=== PATIENT | male | born 1935 | race Caucasian/White ===

== ENCOUNTER 2016-08-30 10:03 | Day surgery (SDC) | payer OTHER, BC ==
[~2016-08-30] VITALS: Ht 182.9 cm; Wt 123.4 kg
[~2016-08-30 10:03] MED LIST: CALCIUM 600 +1 EA12 PO; CRESTOR20 MG PO; DAILY VALUE1 EACH PO; GLUCOPHAGE850 MG PO; GLUCOTROL XL2.5 MG PO; JANUVIA100 MG PO; LO-DOSE ASPIRIN81 M2 PO; REPAGLINIDE0.5 MG PO; VITAMIN D2000 UNIT PO; ZESTRIL20 MG PO
[2016-08-30 10:32] LABS: MCH 27.7 PG (29.0-34.0); MCHC 31.4 G/DL (30.0-36.0); MCV 88.2 FL (86-99); MEAN PLAT.VOLUME 9.3 uM^3 (9.0-12.4); PLATELET COUNT 201 K/uL (156-360); RBC DIS.WIDTH-CV 13.8 % (11.8-14.6); RBC DIS.WIDTH-SD 44.8 % (39-53); RED BLOOD COUNT 5.67 M/uL (4.00-5.50); WHITE BLOOD COUNT 9.8 K/uL (4.1-10.2)
[2016-08-30 10:53] VITALS: BP 129/83
[2016-08-30 11:14] LABS: ANION GAP 9 MEQ/L (2-14); CHLORIDE 101 MEQ/L (99-109); POTASSIUM 4.6 MEQ/L (3.7-5.4); SAMPLE HEMOLYSIS CHECK 0; SAMPLE ICTERIC CHECK 0; SAMPLE LIPEMIA CHECK 0; SODIUM 143 MEQ/L (136-147)
[2016-08-30 11:19] LABS: GFR ESTIMATE (CALCULATED) 48 mL/min/; GLUCOSE 114 mg/dL (70-99); UREA NITROGEN (BUN) 23 mg/dL (9-23)
[2016-08-30 14:28] LABS: POINT-OF-CARE METER ID UU13113675
[2016-08-30 16:29] VITALS: BP 142/77
[2016-08-30 17:33] VITALS: BP 157/72
[2016-08-30 18:30] VITALS: BP 136/75
== END 2016-08-30 18:56 | disposition home or self-care (01) ==
LOC: SDC 10:03
PROVIDERS: Otolaryngology
DX: C09.8 Malignant neoplasm of overlapping sites of tonsil (principal); Z87.891 Personal history of nicotine dependence; J37.0 Chronic laryngitis; R13.10 Dysphagia, unspecified; I10 Essential (primary) hypertension; E11.9 Type 2 diabetes mellitus without complications; E66.9 Obesity, unspecified; Z68.36 Body mass index [BMI] 36.0-36.9, adult; Z79.84 Long term (current) use of oral hypoglycemic drugs; Z79.82 Long term (current) use of aspirin
CPT/HCPCS: 80048; 82948; 85027; 88305; 88341 TC; 88342 TC; 93005; J0171; J0561; J0690; J1170; J3010; J7050; S0020

== ENCOUNTER 2016-10-12 10:34 | Day surgery (SDC) | payer OTHER, BC ==
[~2016-10-12] VITALS: Ht 170.2 cm; Wt 121.1 kg
[2016-10-12 11:29] VITALS: BP 136/73
[2016-10-12 12:00] LABS: POINT-OF-CARE METER ID UU13113694
[2016-10-12] MEDS ORDERED: NORCO 5/3251 TABLET PO (15:38)
[2016-10-12 15:44] LABS: POINT-OF-CARE METER ID UU13113675
[2016-10-12 16:13] VITALS: BP 128/68
[2016-10-12 17:30] VITALS: BP 118/62
== END 2016-10-12 17:50 | disposition home or self-care (01) ==
LOC: SDC 10:34
PROVIDERS: Surgery
DX: C09.9 Malignant neoplasm of tonsil, unspecified (principal); Z87.891 Personal history of nicotine dependence; K42.9 Umbilical hernia without obstruction or gangrene; E78.5 Hyperlipidemia, unspecified; I10 Essential (primary) hypertension; Z79.82 Long term (current) use of aspirin; Z79.84 Long term (current) use of oral hypoglycemic drugs; Z82.49 Family history of ischemic heart disease and other diseases of the circulatory system; Z82.5 Family history of asthma and other chronic lower respiratory diseases; Z80.6 Family history of leukemia
CPT/HCPCS: 71010; 82948; C1751; J3010

== ENCOUNTER 2016-11-26 11:35 | Inpatient (IN) | payer OTHER, BC ==
[~2016-11-26] VITALS: Ht 180.3 cm; Wt 119.0 kg
[~2016-11-26 11:35] MED LIST changes: +NORCO 5/3251 TABLET PO
[2016-11-26] MEDS ORDERED: GLIPIZIDE5 MG PO (12:08)
[2016-11-26] MEDS ORDERED: ONDANSETRON HCL4 MG PO (12:09)
[2016-11-26] MEDS ORDERED: DURAGESIC50 MCG TD (12:09)
[2016-11-26] MEDS ORDERED: GLUCOPHAGE500 MG PO (12:10)
[2016-11-26 12:48] LABS: ADD MIUA? YES; BILIRUBIN NEGATIVE; BLOOD NEGATIVE; COLOR YELLOW ((YELLOW)); GLUCOSE (STRIP) >=500; KETONES NEGATIVE; LEUKOCYTES NEGATIVE; NITRITE NEGATIVE; PROTEIN (STRIP) 30; SPECIFIC GRAVITY 1.013 (1.000-1.030); UROBILINOGEN 0.2 MG/DL (0.2-1.0)
[2016-11-26 12:50] LABS: BACTERIA RARE /HPF; EPITHELIAL CELLS RARE /HPF; MUCUS TRACE /LPF; RED BLOOD CELLS 0-5 /HPF (0-5); UCUL ADDED? NO; WHITE BLOOD CELLS 0-5 /HPF (0-5)
[2016-11-26 13:24] LABS: EOSINOPHIL (%) 0.4 % (0-5); HEMATOCRIT 35.9 % (38.0-50.0); IMMATURE GRANULOCYTE (%) 0.2 % (0.0-0.7); INSTRUMENT ABS NEUTROPHIL CT 3.6 K/uL; LYMPHOCYTE COUNT 0.3 K/uL (1.0-2.8); MCH 28.4 PG (29.0-34.0); MCV 88.6 FL (86-99); MEAN PLAT.VOLUME 8.4 uM^3 (9.0-12.4); MONOCYTE (%) 17.4 % (3-12); MONOCYTE COUNT 0.8 K/uL (0-0.8); NEUTROPHIL (%) 75.4 % (45-76); NEUTROPHIL COUNT 3.6 K/uL (1.8-6.4); PLATELET COUNT 155 K/uL (156-360); RBC DIS.WIDTH-CV 16.4 % (11.8-14.6); RBC DIS.WIDTH-SD 46.2 % (39-53); RED BLOOD COUNT 4.05 M/uL (4.00-5.50); WHITE BLOOD COUNT 4.8 K/uL (4.1-10.2)
[2016-11-26 13:35] LABS: POINT-OF-CARE METER ID UU13113747
[2016-11-26 13:38] LABS: CHLORIDE 93 mEq/L (99-109); POTASSIUM 4.9 mEq/L (3.7-5.4); SODIUM 135 mEq/L (136-147)
[2016-11-26 13:41] LABS: GLUCOSE 193 mg/dL (70-99)
[2016-11-26 13:42] LABS: ANION GAP 12 MEQ/L (2-14); TOTAL BILIRUBIN 0.6 mg/dL (0.0-1.0)
[2016-11-26 13:44] LABS: ALKALINE PHOSPHATASE 76 IU/L (3-129); GFR ESTIMATE (CALCULATED) > 59 mL/min/
[2016-11-26 13:45] LABS: UREA NITROGEN (BUN) 26 mg/dL (9-23)
[2016-11-26 15:32] LABS: TROP-I INTERPRETATION NEGATIVE; TROPONIN-I 0.14 ng/mL (0.0-0.30)
[2016-11-26 17:13] VITALS: BP 130/70
[2016-11-26 18:03] LABS: POINT-OF-CARE METER ID UU13113725
[2016-11-26 19:01] VITALS: BP 113/60
[2016-11-26 21:06] LABS: POINT-OF-CARE METER ID UU13113725
[2016-11-26 21:18] LABS: TROP-I INTERPRETATION NEGATIVE; TROPONIN-I 0.07 ng/mL (0.0-0.30)
[2016-11-26 22:55] VITALS: BP 121/70
[2016-11-26 23:58] LABS: INTER. NORMALIZED RATIO 1.1; PROTHROMBIN TIME 12.6 SEC (10.2-12.9)
[2016-11-27 02:32] VITALS: BP 150/76
[2016-11-27 03:03] LABS: TROP-I INTERPRETATION NEGATIVE; TROPONIN-I 0.03 ng/mL (0.0-0.30)
[2016-11-27 06:28] LABS: HEMATOCRIT 34.2 % (38.0-50.0); MCV 90.5 FL (86-99); MEAN PLAT.VOLUME 8.6 uM^3 (9.0-12.4); PLATELET COUNT 141 K/uL (156-360); RBC DIS.WIDTH-CV 16.6 % (11.8-14.6); RBC DIS.WIDTH-SD 47.7 % (39-53); RED BLOOD COUNT 3.78 M/uL (4.00-5.50); WHITE BLOOD COUNT 3.4 K/uL (4.1-10.2)
[2016-11-27 06:32] LABS: INTER. NORMALIZED RATIO 1.1; PROTHROMBIN TIME 12.6 SEC (10.2-12.9)
[2016-11-27 06:51] LABS: ANION GAP 4 MEQ/L (2-14); CHLORIDE 97 MEQ/L (99-109); GFR ESTIMATE (CALCULATED) > 59 mL/min/; GLUCOSE 140 mg/dL (70-99); POTASSIUM 4.3 MEQ/L (3.7-5.4); SAMPLE HEMOLYSIS CHECK 0; SAMPLE ICTERIC CHECK 0; SAMPLE LIPEMIA CHECK 0; SODIUM 138 MEQ/L (136-147); UREA NITROGEN (BUN) 20 mg/dL (9-23)
[2016-11-27 08:02] VITALS: BP 130/73
[2016-11-27 12:05] VITALS: BP 125/73
[2016-11-27 16:43] VITALS: BP 144/87
[2016-11-27 19:26] VITALS: BP 125/71
[2016-11-27 21:25] LABS: POINT-OF-CARE METER ID UU13113725
[2016-11-27 22:56] VITALS: BP 133/78
[2016-11-28 02:39] VITALS: BP 155/80
[2016-11-28 06:12] LABS: POINT-OF-CARE METER ID UU13113725
[2016-11-28 07:23] LABS: INTER. NORMALIZED RATIO 1.2; PROTHROMBIN TIME 12.9 SEC (10.2-12.9)
[2016-11-28 07:28] VITALS: BP 160/65
[2016-11-28 07:41] LABS: VANCOMYCIN, TROUGH 8.8 MCG/ML (10-20)
[2016-11-28 08:16] LABS: HEMATOCRIT 33.8 % (38.0-50.0); MCH 29.6 PG (29.0-34.0); MCHC 32.5 G/DL (30.0-36.0); MCV 90.9 FL (86-99); PLATELET COUNT 117 K/uL (156-360); RBC DIS.WIDTH-CV 16.8 % (11.8-14.6); RBC DIS.WIDTH-SD 48.7 % (39-53); RED BLOOD COUNT 3.72 M/uL (4.00-5.50); WHITE BLOOD COUNT 3.3 K/uL (4.1-10.2)
[2016-11-28 08:27] LABS: ANION GAP 10 MEQ/L (2-14); CHLORIDE 101 MEQ/L (99-109); GFR ESTIMATE (CALCULATED) > 59 mL/min/; GLUCOSE 130 mg/dL (70-99); SODIUM 140 MEQ/L (136-147); UREA NITROGEN (BUN) 16 mg/dL (9-23)
[2016-11-28 12:07] VITALS: BP 143/78
[2016-11-28] MEDS ORDERED: LOVENOX120 MG/0.8 SC (13:29)
== END 2016-11-28 15:38 | disposition home health service (06) | DRG 176 ==
LOC: EME 11:35 → 5EAST 14:31 → EDOF 14:31 → ENRESERV 14:32 → 5EAST 16:38
PROVIDERS: Emergency Medicine; Internal Medicine
DX: I26.99 Other pulmonary embolism without acute cor pulmonale (principal); I82.432 Acute embolism and thrombosis of left popliteal vein; I82.442 Acute embolism and thrombosis of left tibial vein; I82.492 Acute embolism and thrombosis of other specified deep vein of left lower extremity; C09.9 Malignant neoplasm of tonsil, unspecified; E11.22 Type 2 diabetes mellitus with diabetic chronic kidney disease; I12.9 Hypertensive chronic kidney disease with stage 1 through stage 4 chronic kidney disease, or unspecified chronic kidney disease; N18.9 Chronic kidney disease, unspecified; E78.5 Hyperlipidemia, unspecified; K59.00 Constipation, unspecified; D64.9 Anemia, unspecified; E66.01 Morbid (severe) obesity due to excess calories; Z68.36 Body mass index [BMI] 36.0-36.9, adult; Z87.891 Personal history of nicotine dependence; Z79.82 Long term (current) use of aspirin
CPT/HCPCS: 36415; 71010; 71250; 71275; 77385; 80048; 80048 91; 80053; 80202; 81003; 82948; 83605; 84484; 85025; 85027; 85379; 85610; 87040; 87801; 93005; 93970; 94799; 99202; 99281; 99285; J0696; J1650; J1815; J2405; J2543; J3370; J7030; J7050; S0028

== ENCOUNTER 2017-02-10 10:12 | Day surgery (SDC) | payer OTHER, BC ==
[~2017-02-10 10:12] MED LIST changes: +DURAGESIC50 MCG TD; +GLIPIZIDE5 MG PO; +GLUCOPHAGE500 MG PO; +LOVENOX120 MG/0.8 SC; +ONDANSETRON HCL4 MG PO
[2017-02-10 12:11] LABS: POINT-OF-CARE METER ID UU13113696
== END 2017-02-10 12:47 | disposition home or self-care (01) ==
LOC: CATH 10:12 → SDC 15:29 → CATH 16:14
PROVIDERS: Surgery
DX: I26.99 Other pulmonary embolism without acute cor pulmonale (principal); C10.9 Malignant neoplasm of oropharynx, unspecified; Z86.718 Personal history of other venous thrombosis and embolism; Z79.01 Long term (current) use of anticoagulants; Z92.21 Personal history of antineoplastic chemotherapy; Z92.3 Personal history of irradiation; E11.22 Type 2 diabetes mellitus with diabetic chronic kidney disease; I12.9 Hypertensive chronic kidney disease with stage 1 through stage 4 chronic kidney disease, or unspecified chronic kidney disease; N18.9 Chronic kidney disease, unspecified; E11.65 Type 2 diabetes mellitus with hyperglycemia; E88.81 Metabolic syndrome and other insulin resistance; H91.90 Unspecified hearing loss, unspecified ear; Z86.19 Personal history of other infectious and parasitic diseases; E78.5 Hyperlipidemia, unspecified; R13.10 Dysphagia, unspecified
CPT/HCPCS: 82948; C1769; C1894; J0690; J2250; J3010

== ENCOUNTER → 2017-03-09 | Outpatient (CLI) | payer OTHER, BC ==
[~2017-03-09] MED LIST changes: +AFRIN,GENASAL D15 ML BOTH NARES; +COLACE100 MG PO; +GLIPIZIDE ER2.5 MG PO; +MIRALAX17 GM PO; +NYSTATIN100000 UN1 PO
== END | disposition home or self-care (01) ==
LOC: OPR 07:36 → EDSTATUS 08:00
PROVIDERS: Internal Medicine Medical Oncology
PROC: B92 Imaging, Ear, Nose, Mouth and Throat, Computerized Tomography (CT Scan) (ICD-10-PCS; principal; 2017-03-09)
PROC: 0C983ZX Drainage of Right Parotid Gland, Percutaneous Approach, Diagnostic (ICD-10-PCS; principal; 2017-03-09)
DX: C09.9 Malignant neoplasm of tonsil, unspecified (principal); K11.8 Other diseases of salivary glands; Z86.711 Personal history of pulmonary embolism; I12.9 Hypertensive chronic kidney disease with stage 1 through stage 4 chronic kidney disease, or unspecified chronic kidney disease; N18.9 Chronic kidney disease, unspecified; E11.9 Type 2 diabetes mellitus without complications; E78.5 Hyperlipidemia, unspecified; Z79.84 Long term (current) use of oral hypoglycemic drugs; Z79.01 Long term (current) use of anticoagulants
CPT/HCPCS: 76536; 77012; 82948; 88305

== ENCOUNTER → 2017-04-06 | Outpatient (CLI) | payer OTHER, BC | END | disposition home or self-care (01) | DX: R13.12 Dysphagia, oropharyngeal phase (principal); J35.8 Other chronic diseases of tonsils and adenoids; Z85.818 Personal history of malignant neoplasm of other sites of lip, oral cavity, and pharynx | CPT/HCPCS: 92611 GN; G8996 GN; G8997 GN; G8998 GN ==

== ENCOUNTER → 2017-10-05 | Outpatient (CLI) | payer OTHER, BC | END | disposition home or self-care (01) | DX: R13.13 Dysphagia, pharyngeal phase (principal); Z85.818 Personal history of malignant neoplasm of other sites of lip, oral cavity, and pharynx; Z92.3 Personal history of irradiation; Z92.21 Personal history of antineoplastic chemotherapy; Z86.718 Personal history of other venous thrombosis and embolism; Z86.711 Personal history of pulmonary embolism; Z87.19 Personal history of other diseases of the digestive system | CPT/HCPCS: 92611 GN; G8996 GN; G8997 GN; G8998 GN ==

== ENCOUNTER → 2017-10-23 | Outpatient (CLI) | payer OTHER, BC ==
[~2017-10-23] MED LIST changes: +GLIPIZIDE ER2.5 MG GT; -GLIPIZIDE ER2.5 MG PO; +GLUCOPHAGE500 MG GT; -GLUCOPHAGE500 MG PO; +MIRALAX17 GM GT; -MIRALAX17 GM PO; +REPAGLINIDE0.5 MG GT; -REPAGLINIDE0.5 MG PO
== END | disposition home or self-care (01) ==
LOC: RAD 13:13
PROC: 0DH87UZ Insertion of Feeding Device into Small Intestine, Via Natural or Artificial Opening (ICD-10-PCS; principal; 2017-10-23)
DX: K94.23 Gastrostomy malfunction (principal)
CPT/HCPCS: C1769